=== PATIENT | male | born 1995 | race African-American/Black ===

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

== ENCOUNTER 2017-04-17 14:30 | Emergency (ER) | payer OTHER | END 2017-04-17 15:36 | disposition home or self-care (01) | LOC: M ED 14:30 | DX: M17.12 Unilateral primary osteoarthritis, left knee (principal); F17.200 Nicotine dependence, unspecified, uncomplicated | CPT/HCPCS: 99283 ==